=== PATIENT | female | born 1965 | race Caucasian/White ===

== ENCOUNTER 2023-08-10 06:13 | Emergency (ER) | payer BC, SELFPAY ==
[2023-08-10 06:15] VITALS: BP 138/84
[2023-08-10 06:43] VITALS: BP 147/84
[2023-08-10 07:00] VITALS: BP 135/82
[2023-08-10 07:06] LABS: % Basophils 0.4 % (0-2); % Eosinophils 2.7 % (0-6); % Immature Granulocytes 0.2 % (0-0.5); % Lymphocytes 49.1 % (20.5-51.1); % Monocytes 6.3 % (1.7-9.3); % Neutrophils 41.3 % (42.2-75.2); Absolute Eosinophils 0.1 10^3/uL (0-0.7); Absolute Lymphocytes 2.3 10^3/uL (1.2-3.4); Absolute Monocytes 0.3 10^3/uL (0.1-0.6); Hematocrit 38.9 % (37.0-47.0); Hemoglobin 13.9 g/dL (12.0-16.0); Mean Corp Hgb Conc. 35.7 g/dL (33.0-37.0); Mean Corpuscular Hgb 30.2 pg (27.0-31.0); Mean Corpuscular Volume 84.6 fL (81.0-99.0); Mean Platelet Volume 9.1 fL (7.4-10.4); Nucleated Red Blood Cells % 0 %; Platelet Count 303 10^3/uL (130-400); Red Cell Dist. Width 11.7 % (11.5-14.5); White Blood Cell Count 4.8 10^3/uL (4.8-10.8)
[2023-08-10 07:08] VITALS: BMI 31.0
[2023-08-10 07:10] LABS: ALT (SGPT) 41 U/L (0-35); AST (SGOT) 43 U/L (14-36); Albumin 4.2 g/dl (3.5-5.0); Alkaline Phosphatase 91 U/L (38-126); Blood Urea Nitrogen 19 mg/dl (7-17); Calcium 9.3 mg/dl (8.4-10.2); Carbon Dioxide 27 mmol/L (22-30); Chloride 106 mmol/L (98-107); Estimated Creatinine Clearance 78 ml/min; Glucose 91 mg/dl (70-99); Lipase 141 U/L (23-300); Potassium 4.4 mmol/L (3.5-5.1); Sodium 138 mmol/L (135-145); Total Bilirubin 0.6 mg/dl (0.2-1.3); Total Protein 6.6 g/dl (6.3-8.2); eGFR > 60.00
[2023-08-10 07:12] LABS: Urine Albumin Negative (Neg - Trace); Urine Bilirubin Negative (Negative); Urine Character Clear (Clear); Urine Color Yellow; Urine Glucose Negative (Negative); Urine Ketone Negative (Negative); Urine Leukocyte Trace (Negative); Urine Nitrite Negative (Negative); Urine Occult Blood Negative (Negative); Urine Specific Gravity 1.025 (<1.030); Urine Urobilinogen Negative (Neg - 1+)
--- NOTE | 2023-08-10 07:20 | ED.GENMED ---
History of Present Illness
General
Chief Complaint: Abdominal Pain
Source: patient
Exam Limitations: none
Time Seen by Provider: 08/10/23 06:57
Travel History
Have you had any contact with someone who has COVID-19?: No
Do you have any symptoms of coronavirus? Fever > 100 degrees, chills, cough, shortness of breath, sore throat, loss of taste or smell, muscle aches, or headache?: No
History of Present Illness
History of Present Illness:
57-year-old female presents complaining of intermittent right mid abdominal pain starting about 7 to 10 days ago. She had a right partial nephrectomy performed almost 2 months ago. No vomiting or fever. She has moving her bowels but has been
using MiraLAX to do so. The pain is unchanged with eating. She denies a fever. No chest pain or shortness of breath. No urinary symptoms. No other complaints at this time
Past History
Past History
ED Past Medical History: None
ED Past Surgical History: Cholecystectomy, and Tonsilectomy
Social History
Tobacco: Non-smoker
Alcohol: None
Drug: None
Personal:
Living: with family
Phy Exam
Physical Exam
Physical Exam:
General: Well-appearing female no acute respiratory distress
HEENT: Normocephalic atraumatic neck is supple
Heart: Regular rate and rhythm no murmurs
Lungs: Clear to auscultation bilaterally no wheezing
Abdomen: Soft mildly tender to the right mid abdomen negative Maldonado sign nontender over McBurney's point no guarding rebound normal bowel sounds nondistended
Skin: Warm no rashes or lesions
Extremities: No cyanosis or edema
Course
Orders/Labs/Results
Orders:
Orders
08/10/23 06:48
Complete Blood Count/With Diff Urgent
Comprehensive Metabolic Panel Urgent
Lipase Urgent
Urinalysis Reflex To Culture Urgent
Date Specimen was Collected: 08/10/23
Time Specimen was Collected: 06:40
Urine Microscopic Reflex Cult Urgent
08/10/23 07:15
CT Abd/pelvis W Iv Cont Urgent
Comment:
Reason For Exam: right mid abdominal pain, partial nephrectomy
Abnormal Lab Results
08/10/23
06:48
Neutrophils % 41.3 L %
(42.2-75.2)
BUN 19 H mg/dl
(7-17)
AST 43 H U/L
(14-36)
ALT 41 H U/L
(0-35)
Leukocyte Esterase Rfl Trace A
(Negative)
Urine Bacteria (Reflex) Few A
(Negative)
08/10/23 06:48
08/10/23 06:48
Vital Signs
Initial and Last Documented VS:
Initial Vital Signs
Temp Pulse Resp BP Pulse Ox
97.8 F 82 18 138/84 100
08/10/23 06:15 08/10/23 06:15 08/10/23 06:15 08/10/23 06:15 08/10/23 06:15
Last Documented Vital Signs
Temp Pulse Resp BP Pulse Ox
97.8 F 63 20 135/82 98
08/10/23 06:15 08/10/23 07:00 08/10/23 07:00 08/10/23 07:00 08/10/23 07:00
MDM/Problems Addressed
Differential Diagnosis Includes:
Right mid abdominal pain. Consider constipation versus biliary colic versus postoperative complication from recent partial right nephrectomy
Check labs and urine. CT pending
*Critical Care Note
Total Time (30-74mins, 75-104mins- exclusive of procedures): Not Applicable
Update Note
Update Note:
CT scan demonstrates subtle inflammatory findings around the right kidney. There is few bacteria and white blood cells in her urine. No other acute finding noted on CT. Labs reviewed transaminases in the low 40s. Prior cholecystectomy. Suspect
discomfort may be related to postoperative changes versus early UTI. Will cover with antibiotics given recent surgery and have her follow-up with urology. Stable for discharge
ED Attending Note
-
Portions of this chart may have been created with voice recognition software.� Occasional wrong word or��sound alike� substitutions may have occurred due to the inherent limitations of voice recognition software.
Discharge Plan
Departure
Patient Disposition: Home (Routine Discharge)
Date of Disposition: 08/10/23
Time of Disposition: 09:31
Patient with high blood pressure during this ER visit?: No
Discharge Problem:
Abdominal pain
Instructions: Abdominal Pain
Prescriptions:
New
cefdinir 300 mg capsule
300 mg PO BID Qty: 14 0RF
No Action
lisinopril 10 mg Tablet
10 mg PO DAILY
sertraline 50 mg Tablet
50 mg PO DAILY
Zyrtec 10 mg Capsule
10 mg PO DAILY
Referrals:
Delmi Pierre PA-C [Family Provider] -
Activity Restrictions/Additional Instructions:
Take antibiotics as directed. Follow-up with your urologist. Continue with MiraLAX for constipation peer return for worsening symptoms otherwise
Interventions
Interventions:
*Risk Screen - Suicide Last Done: 08/10/23 06:15
*Neglect/Abuse Screening Last Done: 08/10/23 06:15
ED- Fall Risk Assessment Last Done: 08/10/23 06:38
PU-Ymyvgf-Fypsvxdwnf Assessment Last Done: 08/10/23 06:38
[2023-08-10 07:42] LABS: Urine Bacteria Few (Negative); Urine Red Blood Cell 0-2 /HPF (0-2)
[2023-08-10 08:00] VITALS: BP 147/86
== END 2023-08-10 09:57 | disposition home or self-care (01) ==
LOC: EMR 06:13
PROVIDERS: EMERGENCY PHYSICIAN Emergency Medicine; FAMILY PHYSICIAN Physician Assistant
DX: R10.9 Unspecified abdominal pain (principal); Z90.5 Acquired absence of kidney; Z90.49 Acquired absence of other specified parts of digestive tract
CPT/HCPCS: 99285; 74177; 80053; 81003; 81015; 83690; 85025; Q9967

== ENCOUNTER → 2023-08-13 07:34 | Outpatient (REF) | payer BC, SELFPAY | LOC: HWRAD 07:34 | PROVIDERS: ATTENDING PHYSICIAN Physician Assistant; OTHER PHYSICIAN Specialist; REFERRING PHYSICIAN Urology | DX: R79.89 Other specified abnormal findings of blood chemistry (principal) | CPT/HCPCS: 76700 ==

== ENCOUNTER → 2023-11-17 07:25 | Outpatient (REF) | payer BC, SELFPAY | LOC: HWRAD 07:25 | PROVIDERS: ATTENDING PHYSICIAN Physician Assistant Surgical; FAMILY PHYSICIAN Physician Assistant; OTHER PHYSICIAN Specialist; REFERRING PHYSICIAN Urology | DX: C64.9 Malignant neoplasm of unspecified kidney, except renal pelvis (principal) | CPT/HCPCS: 74178; Q9967 ==

== ENCOUNTER 2024-03-16 07:52 | Emergency (ER) | payer BC, SELFPAY ==
[2024-03-16 07:54] VITALS: BP 136/78
--- NOTE | 2024-03-16 10:37 | ED.GENMED ---
History of Present Illness
General
Chief Complaint: Musculo-Skeletal Complaint
Source: patient
Exam Limitations: none
Time Seen by Provider: 03/16/24 09:39
Nursing documentation reviewed up to this point in time: agreed with
History of Present Illness
History of Present Illness:
58 y/o F with h/o renal cell carcinoma partial nephrectomy may 2023
chronic R groin pain, hip pain
has had appts with [facility] for this hip pain
xray showed hip arthritis
has had a few injections, last was december, cortisone
but she really feels it has worsened int he past 3 weeks
she has pain more at night, and also feels pain with weight bearing
she has a rollator she is using to help her get around; she normally is very active and it is frustrating that she is limited
no swelling, radiation of pain, fever, chills, urinar ysymtpoms
she has been taking ibuprofen with transient relief, was not told to avoid nsaids
she has appt with dr. parker in 2 days but pain is nagging
she also has been having constipation and isn't sure if that is contributing
she tried a fleet and a dose of miralax and hasn't had BM in about 4-5 days
she has had lack of appaetite but no vomiting
no urinary symptoms
Past History
Past History
ED Past Medical History: Cancer (renal cell carcinoma)
ED Past Surgical History: Cholecystectomy, , Tonsilectomy and Other (partial nephrectomy)
Social History
Tobacco: Non-smoker
Alcohol: None
Drug: None
Personal:
Living: with family
Review of Systems
Review of Systems
Allergies reviewed?: Yes
All Other Systems: Not applicable
Phy Exam
Physical Exam
Physical Exam:
GENERAL: Alert , in no apparent distress
EYE: pupils equal and reactive
NECK: Supple
ENT: o/p clr, mmm.
CARDIAC: Regular rate and rhythm .
LUNGS: Clear breath sounds bilaterally, no acute respiratory distress, no wheezes/rales/rhonchi
ABDOMEN: Soft, without focal tenderness, no r/g, no cvat, normal bowel sounds
NEUROLOGICAL: Alert and oriented, no focal neuro deficits
SKIN: Warm and dry, skin intact.
MUSCULOSKELETAL: No edema, well perfused. neg arlene's sign
Right inguinal region normal inspection, no rashes, no tenderness, some pain with hip rotation internal and external, mild with hip flexion. Normal negative straight leg raise, and perfused
PSYCH: Normal and appropriate interaction.
Course
Orders/Labs/Results
Orders:
Orders
03/16/24 07:58
Hip, Right 2-3 Views [CR Hip - RT w/wo Pel 2-3 Vw*] Urgent
Comment:
Reason For Exam: pain
Include a pelvis x-ray?: Yes
03/16/24 10:26
CT Abd/Pel (IV only)-DH only Urgent
Comment:
Reason For Exam: RLQ PAIN
03/16/24 11:20
Complete Blood Count/With Diff Urgent
Comprehensive Metabolic Panel Urgent
Urinalysis Reflex To Culture Urgent
Date Specimen was Collected: 03/16/24
Time Specimen was Collected: 11:11
03/16/24 13:33
Ketorolac [Toradol] 15 mg IV NOW STA
Abnormal Lab Results
03/16/24
11:20
BUN 19 H mg/dl
(7-17)
AST 43 H U/L
(14-36)
ALT 85 H U/L
(0-35)
03/16/24 11:20
03/16/24 11:20
Vital Signs
Initial and Last Documented VS:
Initial Vital Signs
Temp Pulse Resp BP Pulse Ox
98.4 F 66 18 136/78 100
03/16/24 07:54 03/16/24 07:54 03/16/24 07:54 03/16/24 07:54 03/16/24 07:54
Last Documented Vital Signs
Temp Pulse Resp BP Pulse Ox
98.4 F 78 18 151/79 99
03/16/24 07:54 03/16/24 14:00 03/16/24 13:12 03/16/24 14:00 03/16/24 11:23
MDM/Problems Addressed
Differential Diagnosis Includes:
hip arthritis, consitpation, uti, pelvic mass, labrum tear, bursitis
MDM/Problems Addressed:
58 y/o F
acute on chrnoic R hip pain for th epast few weeks
no injury
has had cortisone shots by PA at ortho but is due to see dr parker
but then also the past few days abdominal discomfort, nausea, lack of appetite and constipation
normally moves bowel swell
tried enema and mrialax no relief
doesn't know if hip and abdomen are related
on exam pt def has some pain with rotatino of the hip
but normal NV exam
no lane
abdomen soft nontender
labs reassuring and ct no dinfings,some mild stool burden
will recommend miralax for that as well as metamucli
regarding the hip, it does seem to be joint pain
probably has degree of chronic inflammation
will try medrol dose devendra and tylenol
f/u with ortho already scheduled;
*Critical Care Note
Total Time (30-74mins, 75-104mins- exclusive of procedures): Not Applicable
ED Attending Note
-
Portions of this chart may have been created with voice recognition software.� Occasional wrong word or��sound alike� substitutions may have occurred due to the inherent limitations of voice recognition software.
Discharge Plan
Departure
Patient Disposition: Home (Routine Discharge)
Date of Disposition: 03/16/24
Time of Disposition: 13:30
Patient with high blood pressure during this ER visit?: No
Condition: Fair
Covid-19: Not Applicable
Discharge Problem:
Arthritis of hip, Constipation
Instructions: Constipation, Adult ED, Hip Pain ED
Prescriptions:
New
methylprednisolone [Methylpred DP] 4 mg tablets,dose pack
See Rx Instructions .ROUTE .COMPLEX Qty: 21 0RF
Rx Instructions:
for 6 days
No Action
lisinopril 10 mg Tablet
10 mg PO DAILY
sertraline 50 mg Tablet
50 mg PO DAILY
Zyrtec 10 mg Capsule
10 mg PO DAILY
cefdinir 300 mg capsule
300 mg PO BID Qty: 14 0RF
Referrals:
Delmi Pierre PA-C [Family Provider] - Follow up in 5-7 days
Activity Restrictions/Additional Instructions:
YOU WERE GIVEN A DOSE OF TORADOL TODAY TO HELP WITH PAIN
IF YOU NEED MORE MEDICATION LATER, TRY TYLENOL EVERY 6 HOURS NEEDED
TOMORROW START THE STEROIDS
TAKE PRESCRIBED
TAKE TYLENOL 3 TIMES A DAY FOR PAIN NEEDED WELL
FOLLOW UP WITH DR PARKER
YOUR CAT SCAN SHOWED CONSTIPATION
MIRALAX TWICE A DAY FOR 2-3 DAYS NEEDED FOR CONSITPATION TO HELP
OTHERWISE YOU CAN TRY MAGNESIUM CITRATE (THIS IS STRONGER)
USE METAMUCIL OVER THE COUNTER FOR STOOL SOFTENER EVERY DAY
RETURN OR ANYC OCNERNS.
Interventions
Interventions:
*Risk Screen - Suicide Last Done: 03/16/24 10:21
*General Assessment Last Done: 03/16/24 10:21
*Neglect/Abuse Screening Last Done: 03/16/24 10:21
*ED COVID-19 Vaccine History Last Done: 03/16/24 10:21
*Nursing Disposition Last Done: 03/16/24 14:00
ED-Musculoskeletal Assessment Last Done: 03/16/24 10:21
Discharge Date and Time
Discharge Date/Time: 03/16/24 14:01
Print Language: [place]
[2024-03-16 11:22] VITALS: BMI 25.5
[2024-03-16 11:23] VITALS: BP 153/77
[2024-03-16 11:30] LABS: % Basophils 0.3 % (0-2); % Eosinophils 1.4 % (0-6); % Immature Granulocytes 0.2 % (0-0.5); % Lymphocytes 36.4 % (20.5-51.1); % Neutrophils 55.7 % (42.2-75.2); Absolute Eosinophils 0.1 10^3/uL (0-0.7); Absolute Lymphocytes 2.1 10^3/uL (1.2-3.4); Absolute Monocytes 0.4 10^3/uL (0.1-0.6); Absolute Neutrophils 3.2 10^3/uL (1.4-6.5); Hematocrit 46.3 % (37.0-47.0); Hemoglobin 15.6 g/dL (12.0-16.0); Mean Corp Hgb Conc. 33.7 g/dL (33.0-37.0); Mean Corpuscular Hgb 29.3 pg (27.0-31.0); Mean Corpuscular Volume 86.9 fL (81.0-99.0); Mean Platelet Volume 9.4 fL (7.4-10.4); Nucleated Red Blood Cells % 0 %; Platelet Count 289 10^3/uL (130-400); Red Blood Cell Count 5.33 10^6/uL (4.20-5.40); Red Cell Dist. Width 11.8 % (11.5-14.5); White Blood Cell Count 5.8 10^3/uL (4.8-10.8)
[2024-03-16 11:32] LABS: Urine Albumin Negative (Neg - Trace); Urine Bilirubin Negative (Negative); Urine Character Clear (Clear); Urine Color Yellow; Urine Glucose Negative (Negative); Urine Ketone Negative (Negative); Urine Leukocyte Negative (Negative); Urine Nitrite Negative (Negative); Urine Occult Blood Negative (Negative); Urine Urobilinogen Negative (Neg - 1+)
[2024-03-16 11:56] LABS: ALT (SGPT) 85 U/L (0-35); AST (SGOT) 43 U/L (14-36); Albumin 4.5 g/dl (3.5-5.0); Alkaline Phosphatase 105 U/L (38-126); Blood Urea Nitrogen 19 mg/dl (7-17); Calcium 10.1 mg/dl (8.4-10.2); Carbon Dioxide 29 mmol/L (22-30); Chloride 100 mmol/L (98-107); Estimated Creatinine Clearance 75 ml/min; Glucose 88 mg/dl (70-99); Potassium 4.4 mmol/L (3.5-5.1); Sodium 141 mmol/L (135-145); Total Bilirubin 1.2 mg/dl (0.2-1.3); Total Protein 7.2 g/dl (6.3-8.2); eGFR > 60.00
[2024-03-16 13:12] VITALS: BP 145/86
[2024-03-16] MEDS: TORADOL 15 MG IV (13:45)
[2024-03-16 14:00] VITALS: BP 151/79
== END 2024-03-16 14:01 | disposition home or self-care (01) ==
LOC: EMR 07:52
PROVIDERS: Physician Assistant; EMERGENCY PHYSICIAN Emergency Medicine; FAMILY PHYSICIAN Physician Assistant
DX: M16.11 Unilateral primary osteoarthritis, right hip (principal); K59.00 Constipation, unspecified; M25.551 Pain in right hip; R10.31 Right lower quadrant pain; R11.0 Nausea; R63.0 Anorexia; F41.9 Anxiety disorder, unspecified; Z85.528 Personal history of other malignant neoplasm of kidney; Z86.16 Personal history of COVID-19; Z90.5 Acquired absence of kidney; Z90.49 Acquired absence of other specified parts of digestive tract; Z88.5 Allergy status to narcotic agent
CPT/HCPCS: 99285; 96374; 73502; 74177; 80053; 81003; 85025; Q9967

== ENCOUNTER → 2024-06-09 11:08 | Outpatient (REF) | payer BC, SELFPAY | LOC: HWWDC 11:08 | PROVIDERS: ATTENDING PHYSICIAN Obstetrics & Gynecology; FAMILY PHYSICIAN Physician Assistant | DX: Z12.31 Encounter for screening mammogram for malignant neoplasm of breast (principal) | CPT/HCPCS: 77063; 77067 ==

== ENCOUNTER → 2024-12-01 13:37 | Outpatient (REF) | payer SELFPAY | LOC: HWRAD 13:37 | PROVIDERS: ATTENDING PHYSICIAN Physician Assistant | DX: I25.10 Atherosclerotic heart disease of native coronary artery without angina pectoris (principal) | CPT/HCPCS: 75571 ==

== ENCOUNTER → 2024-12-08 15:51 | Outpatient (REF) | payer BC, SELFPAY | LOC: HWRCS 15:51 | PROVIDERS: ATTENDING PHYSICIAN Physician Assistant | DX: I31.39 Other pericardial effusion (noninflammatory) (principal) | CPT/HCPCS: 93306 ==